=== PATIENT | female | born 1970 | race Caucasian/White ===

== ENCOUNTER → 2017-04-24 | Outpatient (CLI) | payer OTHER | END | disposition home or self-care (01) | LOC: KCIC MAMMO 13:11 | DX: Z12.31 Encounter for screening mammogram for malignant neoplasm of breast (principal) | CPT/HCPCS: 77063; 77067 ==

== ENCOUNTER → 2017-05-13 | Outpatient (CLI) | payer OTHER | END | disposition home or self-care (01) | LOC: KCIC US 12:59 | DX: N63.20 Unspecified lump in the left breast, unspecified quadrant (principal) | CPT/HCPCS: 76641 ==

== ENCOUNTER → 2017-06-02 | Outpatient (CLI) | payer OTHER | END | disposition home or self-care (01) | LOC: US 08:15 | DX: N63.20 Unspecified lump in the left breast, unspecified quadrant (principal); J45.909 Unspecified asthma, uncomplicated | CPT/HCPCS: 19081; 76942; 77065; 88305; C1713 ==

== ENCOUNTER → 2018-07-29 | Outpatient (CLI) | payer OTHER ==
--- NOTE | 2018-07-29 14:42 | KCIC ---
Bilateral diagnostic digital mammograms with 3-D tomosynthesis: Reason for examination: Previous biopsy with persistent pain at the biopsy site. Comparison is made to previous studies dated 06/02/2017 and 04/24/2017. Bilateral mammograms in CC and oblique projections were obtained with 2-D imaging and 3-D tomosynthesis imaging on a Siemens Inspiration unit and reviewed on the workstation. Interpretation was made with the benefit of CAD. The skin and nipples show no abnormalities. No abnormal axillary lymph nodes are seen. The breast parenchyma is heterogeneously dense. (Breast density: Category C.) There continues to be a nodule contained a biopsy clip at the 12:00 position anteriorly in the left breast which is unchanged. There are no new dominant masses, suspicious calcifications or architectural distortion. Impression: No change in the nodular density anteriorly in the 12:00 position of the left breast. No evidence of malignancy. Ultrasound to follow. Your patient's mammogram demonstrates that she has dense breast tissue (breast density category C or D), which could hide abnormalities, and if she has other risk factors for breast cancer that have been identified, she might benefit from supplemental screening tests that may be suggested by you as her ordering physician. Dense breast tissue, in and of itself, is a relatively common condition. Therefore, this information is not provided to cause undue concern, but rather to raise your awareness and to promote discussion with your patient regarding the presence of other risk factors, in addition to dense breast tissue. Your patient's mammography results will be sent to her. BI-RAD Category 0: Incomplete. Needs additional imaging evaluation. Left breast ultrasound: Comparison is made to previous study dated 05/13/2017. Ultrasound examination was performed in the area of clinical concern at the 12:00 position and at the left axilla. At the 12:00 position 3 cm from the nipple, there continues to be a hypoechoic nodule contained a biopsy clip which appears to measure 1.3 x 1.6 x 1.7 cm in greatest dimensions. No new cystic or solid lesions are seen. No abnormal appearing lymph nodes are seen in the left axilla. IMPRESSION: No significant interval change seen at the 1.7 cm nodule in the 12:00 position. No other focal or suspicious abnormality seen. Recommend routine mammographic follow-up. BI-RADS Category 2: Benign. "Our facility is accredited by the [employer] Mammography [employer]." This patient's information has been entered into a reminder system for the patient to be notified with the results of her examination and a target date for the next mammogram. Electronically signed by: Jessy Sung MD (07/29/2018 2:39 PM) [id number]
== END | disposition home or self-care (01) ==
LOC: KCIC MAMMO 12:56
PROVIDERS: ATTEND Family Medicine
DX: N63.21 Unspecified lump in the left breast, upper outer quadrant (principal)
CPT/HCPCS: 76641; 77066; G0279; 77062

== ENCOUNTER → 2020-08-02 | Outpatient (CLI) | payer OTHER ==
--- NOTE | 2020-08-02 11:41 | KCIC ---
Complete pelvic ultrasound HISTORY: Enlarged uterus. Heavy menses. FINDINGS: Transabdominal transducer was utilized. No transvaginal sonography was obtained. Uterus is enlarged with a globular morphology placed by numerous hypoechoic masses many of which are somewhat ill-defined and have mild shadowing. Uterus measures 18.2 x 16.0 x 15.0 cm. The masses are t oo numerous an ill-defined 2 definitively quantify. However the largest mass at the right upper uteri ne body and fundus is quite large measuring 11.5 x 9.6 x 9.0 cm replacing most of the right uterus. T he next largest mass at the left anterior uterine body is mildly exophytic and measures 6.9 x 5.0 x 7 .4 cm. A third potential mass within the central uterine body measures 7.2 x 5.7 x 6.9 cm the endomet rium is not visualized likely compressed and effaced by the numerous uterine masses which are most li daniel leiomyomas. Given the large size of the dominant mass a sarcoma cannot be completely excluded al though the features are typical of leiomyomas, and there are no features other than the large size of the mass to otherwise raise the possibility of malignancy. Ovaries not visualized likely obscured by the enlarged uterus and bowel gas shadowing and pelvis. No pelvic fluid documented. IMPRESSION: Enlarged globular uterus with numerous hypoechoic masses most likely leiomyomas. The marvin nant mass measures 11 cm in size. The extent of uterine mass involvement may be further assessed with MR imaging. See above. Electronically signed by: Coy Berumen MD (08/02/2020 11:39 AM) [facility]
--- NOTE | 2020-08-02 15:47 | KCIC ---
Bilateral diagnostic digital mammograms with 3-D tomosynthesis: Reason for examination: Lateral left breast pain. Comparison is made to previous studies dated back to 04/24/2017. Bilateral mammograms in CC and oblique projections were obtained with 2-D imaging and 3-D tomosynthes is imaging on a Siemens Inspiration unit and reviewed on the workstation. Interpretation was made wit h the benefit of CAD. The skin and nipples show no abnormalities. No abnormal axillary lymph nodes are seen. The breast par enchyma is heterogeneously dense. (Breast density: Category C.) There continues to be a nodule with b iopsy clip in the 12:30 position approximately 3.5 cm from the nipple which is stable. In the 3:00 po sition approximately 2 cm from the nipple on oblique view, there appears to be a new nodular parenchy mal density measuring approximately 8 mm in size. Further evaluation with ultrasound will follow. The re are no other new dominant masses, suspicious calcifications or architectural distortion. Impression: Continued presence of a biopsied nodule at the 12:30 position of the left breast. New nodularity in the subareolar 3:00 position of the left breast seen best on oblique view. Ultrasou nd to follow. Your patient's mammogram demonstrates that she has dense breast tissue (breast density category C or D), which could hide abnormalities, and if she has other risk factors for breast cancer that have bee n identified, she might benefit from supplemental screening tests that may be suggested by you as her ordering physician. Dense breast tissue, in and of itself, is a relatively common condition. Therefo re, this information is not provided to cause undue concern, but rather to raise your awareness and t o promote discussion with your patient regarding the presence of other risk factors, in addition to d ense breast tissue. Your patient's mammography results will be sent to her. BI-RAD Category 0: Incomplete. Needs additional imaging evaluation. Left breast ultrasound: Comparison is made to previous study dated 07/29/2018. Ultrasound examination of the left breast and axilla was performed. At the 12:30 position 2 cm from the nipple, there continues to be a 2 cm hypoechoic nodule with biops y clip which is stable. At the 1:00 position 8 cm from the nipple, there is a patch of fibrocystic-ty pe change measuring 8.5 mm in greatest dimension and lying in parallel orientation with some posterio r acoustic enhancement. At the 3:00 position 5 cm from the nipple, there is a small 4.5 x 4 x 3 mm no dule with lobulated contour. Further evaluation with ultrasound-guided biopsy should be considered. A t the 3:30 position 7 cm from the nipple, there is a 3.8 mm cystic lesion. At the 5:00 position 3 cm from the nipple, there is a 4.5 mm hypoechoic circumscribed lesion with a fibrocystic appearance. No abnormal appearing lymph nodes are seen in the left axilla. IMPRESSION: Previously biopsied nodule at 12:30 position measuring 2 cm in greatest dimension. 4.5 mm nodule with lobulated contour at the 3:00 position 5 cm from the nipple. Recommend ultrasound- guided biopsy. Benign-appearing cystic and fibrocystic lesions present in the 1:00, 3:00 and 5:00 positions. Recomme nd 6 month follow-up with ultrasound. BI-RADS Category 4: Suspicious. These findings have been discussed with the patient and Dr. Trina Ugarte's nurse, Reyna, was notifi ed about these findings at 3:45 PM on 08/02/2020. "Our facility is accredited by the [employer] Mammography Program." This patient's information has been entered into a reminder system for the patient to be notified wit h the results of her examination and a target date for the next mammogram. Electronically signed by: Jessy Sung MD (08/02/2020 3:45 PM) [id number]
== END ==
LOC: KCIC MAMMO 07:53
PROVIDERS: ATTEND Obstetrics & Gynecology
DX: N64.4 Mastodynia (principal); N63.21 Unspecified lump in the left breast, upper outer quadrant; N85.2 Hypertrophy of uterus
CPT/HCPCS: 76641; 76856; 77066; G0279; 77062